=== PATIENT | male | born 1980 | race American Indian/Alaskan Native ===

== ENCOUNTER 2018-04-07 23:12 | Emergency (ER) | payer SELFPAY ==
[2018-04-07 23:50] VITALS: BP 119/82
[2018-04-08] MEDS ORDERED: MOTRIN PO ONE (02:45)
--- NOTE | 2018-04-08 02:59 | Emergency Department Report ---
ED General Adult HPI - General Chief complaint: Pain General Stated complaint: BODY CRAMPS Time Seen by Provider: 04/08/18 02:48 Source: patient Mode of arrival: Ambulatory Limitations: No Limitations - History of Present Illness Initial comments: This is a 37-year-old male nontoxic, well nourished in appearance, no acute signs of distress presents to the ED with c/o of body aches. Patient stated that last night he was walking from [facility] to [place]. Patient denies any other trauma. Patient denies any fever, chills, nausea, vomiting, chest pain, shortness of breath, headache, stiff neck, numbness or tingling. She denies any abdominal pain. Patient denies any allergies. Past medical history includes alcoholism. -: Last night Radiation: non-radiation Severity scale (0 -10): 8 Quality: aching Consistency: constant Improves with: none Worsens with: none Associated Symptoms: denies other symptoms. denies: confusion, chest pain, cough, diaphoresis, fever/chills, headaches, loss of appetite, malaise, nausea/ vomiting, rash, seizure, shortness of breath, syncope, weakness Treatments Prior to Arrival: none - Related Data Previous Rx's Medication Instructions Recorded Last Taken Type chlordiazePOXIDE [Librium] 25 mg PO Q8H PRN #15 capsule 03/10/16 Unknown Rx Cyclobenzaprine [Flexeril] 10 mg PO BID PRN #14 tablet 04/08/18 Unknown Rx Ibuprofen [Motrin] 600 mg PO Q8H PRN #30 tablet 04/08/18 Unknown Rx Allergies Allergy/AdvReac Type Severity Reaction Status Date / Time No Known Allergies Allergy Verified 04/07/18 23:45 ED Review of Systems ROS: Stated complaint: BODY CRAMPS Other details as noted in HPI Constitutional: denies: chills, fever Eyes: denies: eye pain, eye discharge, vision change ENT: denies: ear pain, throat pain Respiratory: denies: cough, shortness of breath, wheezing Cardiovascular: denies: chest pain, palpitations Endocrine: no symptoms reported Gastrointestinal: denies: abdominal pain, nausea, diarrhea Genitourinary: denies: urgency, dysuria Musculoskeletal: denies: back pain, joint swelling, arthralgia Skin: denies: rash, lesions Neurological: denies: headache, weakness, paresthesias Psychiatric: denies: anxiety, depression Hematological/Lymphatic: denies: easy bleeding, easy bruising ED Past Medical Hx - Past Medical History Hx Asthma: Yes Additional medical history: Alcoholism - Surgical History Past Surgical History?: No Additional Surgical History: left hand, hand - Social History Smoking Status: Current Every Day Smoker Substance Use Type: Alcohol, Marijuana - Medications Home Medications: Home Medications Medication Instructions Recorded Confirmed Last Taken Type chlordiazePOXIDE [Librium] 25 mg PO Q8H PRN #15 capsule 03/10/16 05/20/16 Unknown Rx Cyclobenzaprine [Flexeril] 10 mg PO BID PRN #14 tablet 04/08/18 Unknown Rx Ibuprofen [Motrin] 600 mg PO Q8H PRN #30 tablet 04/08/18 Unknown Rx ED Physical Exam - General Limitations: No Limitations General appearance: alert, in no apparent distress - Head Head exam: Present: atraumatic, normocephalic - Eye Eye exam: Present: normal appearance Pupils: Present: normal accommodation - ENT ENT exam: Present: normal exam, mucous membranes moist - Neck Neck exam: Present: normal inspection, full ROM. Absent: tenderness, meningismus, lymphadenopathy - Respiratory Respiratory exam: Present: normal lung sounds bilaterally. Absent: respiratory distress, wheezes, rales, rhonchi, stridor, chest wall tenderness, accessory muscle use, decreased breath sounds, prolonged expiratory - Cardiovascular Cardiovascular Exam: Present: regular rate, normal rhythm, normal heart sounds. Absent: bradycardia, tachycardia, irregular rhythm, systolic murmur, diastolic murmur, rubs, gallop - GI/Abdominal GI/Abdominal exam: Present: soft, normal bowel sounds. Absent: distended, tenderness, guarding, rebound, rigid, diminished bowel sounds - Rectal Rectal exam: Present: deferred - Extremities Exam Extremities exam: Present: normal inspection, full ROM, normal capillary refill. Absent: tenderness - Back Exam Back exam: Present: normal inspection, full ROM. Absent: tenderness, CVA tenderness (R), CVA tenderness (L), muscle spasm, paraspinal tenderness, vertebral tenderness, rash noted - Neurological Exam Neurological exam: Present: alert, oriented X3, normal gait - Psychiatric Psychiatric exam: Present: normal affect, normal mood - Skin Skin exam: Present: warm, dry, intact, normal color. Absent: rash ED Course Vital Signs 04/07/18 23:45 Temperature 98.0 F Pulse Rate 74 Respiratory 18 Rate Blood Pressure 119/82 O2 Sat by Pulse 98 Oximetry - Reevaluation(s) Reevaluation #1: 04/08/18 02:56 Patient is speaking in full sentences with no signs of distress noted. - Consultations Consultation #1: 04/08/18 04:37 Patient has been consulted with Dr. Harper about patient history, physical exam, and labs and examined and stated to give patient fluids and discharge. ED Medical Decision Making - Lab Data Result diagrams: 04/08/18 02:59 04/08/18 02:59 - Medical Decision Making 37-year-old male that presents with generalized muscular strains. Patient is stable and was examined by me. Labs obtained and unremarkable. CK obtained and elevated. As per Dr. Harper, no admission necessary but to provide patient with 1 L of normal saline and then to discharge. Patient received Motrin in the ED. Patient state if symptoms are improving subsiding after pain medication. Patient's vital signs are within normal limits. Patient is discharged with Motrin and Flexeril and was instructed not to operate any machinery while taking Flexeril due to possible drowsiness. Patient was referred to Follow-up with a primary care doctor in 3-5 days or if symptoms worsen and continue return to emergency room as soon as possible. At time of discharge, the patient does not seem toxic or ill in appearance. No acute signs of distress noted. Patient agrees to discharge treatment plan of care. No further questions noted by the patient. Critical care attestation.: If time is entered above; I have spent that time in minutes in the direct care of this critically ill patient, excluding procedure time. ED Disposition Clinical Impression: Generalized body aches, Muscle strain Disposition: [id number] TO HOME OR SELFCARE Is pt being admited?: No Does the pt Need Aspirin: No Condition: Stable Instructions: Cyclobenzaprine (By mouth), Muscle Strain (ED) Additional Instructions: Follow-up with a primary care doctor in 3-5 days or if symptoms worsen and continue return to emergency room as soon as possible. Take ibuprofen and Flexeril as prescribed. Do not operate heavy machinery while taking Flexeril due to sedation Prescriptions: Cyclobenzaprine [Flexeril] 10 mg PO BID PRN #14 tablet PRN Reason: Muscle Spasm Ibuprofen [Motrin] 600 mg PO Q8H PRN #30 tablet PRN Reason: Pain Referrals: PRIMARY CARE, [Primary Care Provider] - 3-5 Days DEEPAK CLAYTON MD [Staff Physician] - 3-5 Days [facility] [place] [Outside] - 3-5 Days [facility] [Outside] - 3-5 Days
[2018-04-08 03:24] LABS: Basophils # (Auto) 0.1 K/mm3 (0.0-0.1); Basophils % (Auto) 0.7 % (0.0-1.8); Eosinophils % (Auto) 0.1 % (0.0-4.3); Hematocrit 40.8 % (35.5-45.6); Hemoglobin 13.8 gm/dl (11.8-15.2); Lymphocytes # (Auto) 1.6 K/mm3 (1.2-5.4); Lymphocytes % (Auto) 19.3 % (13.4-35.0); Mean Corpuscular HGB Conc 34 % (32-34); Mean Corpuscular Hemoglobin 31 pg (28-32); Mean Corpuscular Volume 91 fl (84-94); Monocytes # (Auto) 0.6 K/mm3 (0.0-0.8); Monocytes % (Auto) 7.1 % (0.0-7.3); Platelet Count 205 K/mm3 (140-440); Red Blood Count 4.49 M/mm3 (3.65-5.03); Red Cell Distribution Width 15.7 % (13.2-15.2)
[2018-04-08 04:01] LABS: BUN/Creatinine Ratio 15; Blood Urea Nitrogen 17 mg/dL (9-20); Calcium 9.8 mg/dL (8.4-10.2); Hemolysis Index 2
[2018-04-08] MEDS ORDERED: NACL 0.9% 1000 ML 1,000 ML IV ONE (04:27)
[2018-04-08 05:37] LABS: Bacteria,Urine 1+ /HPF (Negative); Bilirubin,Urine NEG (Negative); Blood,Urine NEG (Negative); Color,Urine Yellow (Yellow); Mucus,Urine FEW /HPF; Urobilinogen,Urine < 2.0 mg/dL (<2.0)
== END 2018-04-08 07:19 | disposition home or self-care (01) ==
LOC: ED 23:12
DX: T14.8XXA Other injury of unspecified body region, initial encounter (principal); M79.1 Myalgia; J45.909 Unspecified asthma, uncomplicated; F17.200 Nicotine dependence, unspecified, uncomplicated; F12.10 Cannabis abuse, uncomplicated; X58.XXXA Exposure to other specified factors, initial encounter; Y93.89 Activity, other specified; Y92.89 Other specified places as the place of occurrence of the external cause; Y99.8 Other external cause status
CPT/HCPCS: 36415; 80048; 81001; 82550; 85025; 99284; J7030

== ENCOUNTER 2018-05-02 00:52 | Emergency (ER) | payer SELFPAY ==
[2018-05-02 02:58] VITALS: BP 111/72
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
[2018-05-02] MEDS ORDERED: BACTRIM DS PO ONE (04:00)
[2018-05-02] MEDS ORDERED: BOOSTRIX IM ONE (04:00)
[2018-05-02] MEDS ORDERED: TYLENOL PO ONE (04:01)
[2018-05-02 04:21] LABS: Basophils % (Auto) 0.4 % (0.0-1.8); Eosinophils % (Auto) 0.4 % (0.0-4.3); Hematocrit 37.7 % (35.5-45.6); Hemoglobin 12.4 gm/dl (11.8-15.2); Lymphocytes # (Auto) 2.7 K/mm3 (1.2-5.4); Lymphocytes % (Auto) 33.5 % (13.4-35.0); Mean Corpuscular HGB Conc 33 % (32-34); Mean Corpuscular Hemoglobin 30 pg (28-32); Mean Corpuscular Volume 91 fl (84-94); Monocytes # (Auto) 0.6 K/mm3 (0.0-0.8); Monocytes % (Auto) 6.8 % (0.0-7.3); Platelet Count 209 K/mm3 (140-440); Red Blood Count 4.15 M/mm3 (3.65-5.03); Red Cell Distribution Width 15.3 % (13.2-15.2)
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
== END 2018-05-02 05:03 | disposition home or self-care (01) ==
LOC: ED 00:52
DX: S61.431A Puncture wound without foreign body of right hand, initial encounter (principal); J45.909 Unspecified asthma, uncomplicated; F17.200 Nicotine dependence, unspecified, uncomplicated; X95.01XA Assault by airgun discharge, initial encounter; Y93.89 Activity, other specified; Y99.8 Other external cause status; Y92.89 Other specified places as the place of occurrence of the external cause
CPT/HCPCS: 36415; 85025; 90471; 90715

== ENCOUNTER 2018-06-07 02:57 | Emergency (ER) | payer SELFPAY ==
[2018-06-07 03:10] VITALS: BP 122/77
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
[2018-06-07] MEDS ORDERED: MOTRIN PO ONE (07:57)
== END 2018-06-07 08:12 | disposition home or self-care (01) ==
LOC: ED 02:57
DX: M79.662 Pain in left lower leg (principal); M79.661 Pain in right lower leg; J45.909 Unspecified asthma, uncomplicated; F17.200 Nicotine dependence, unspecified, uncomplicated; F12.10 Cannabis abuse, uncomplicated
CPT/HCPCS: 99282

== ENCOUNTER 2018-07-20 20:34 | Emergency (ER) | payer SELFPAY ==
[2018-07-20 21:49] VITALS: BP 143/93
[2018-07-21] MEDS ORDERED: NACL 0.9% 1000 ML 1,000 ML IV ONE ×2 (00:12→02:35)
[2018-07-21] MEDS ORDERED: ZOFRAN IV ONE (00:12)
[2018-07-21] MEDS ORDERED: VANCOMYCIN/NS 1 GM/250 ML 1 GM/250 ML BAG IV ONE (00:12)
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
[2018-07-21] MEDS ORDERED: BOOSTRIX IM ONE (00:15)
[2018-07-21 00:37] LABS: Basophils # (Auto) 0.1 K/mm3 (0.0-0.1); Basophils % (Auto) 1.6 % (0.0-1.8); Eosinophils # (Auto) 0.1 K/mm3 (0.0-0.4); Eosinophils % (Auto) 1.6 % (0.0-4.3); Hemoglobin 13.1 gm/dl (11.8-15.2); Lymphocytes # (Auto) 2.3 K/mm3 (1.2-5.4); Lymphocytes % (Auto) 38.4 % (13.4-35.0); Mean Corpuscular HGB Conc 34 % (32-34); Mean Corpuscular Hemoglobin 31 pg (28-32); Mean Corpuscular Volume 92 fl (84-94); Monocytes # (Auto) 0.4 K/mm3 (0.0-0.8); Monocytes % (Auto) 6.4 % (0.0-7.3); Platelet Count 189 K/mm3 (140-440); Red Blood Count 4.24 M/mm3 (3.65-5.03); Red Cell Distribution Width 15.8 % (13.2-15.2)
[2018-07-21 00:47] LABS: INR 0.86 (0.87-1.13)
--- NOTE | 2018-07-21 00:47 | XRay Report ---
FINAL REPORT EXAM: XR CHEST 1V AP HISTORY: SOB TECHNIQUE: A portable view the chest was obtained. FINDINGS: The heart size and vascularity appear normal. The lungs are clear. Pleural fluid is not seen. The skeletal structures appear well maintained. IMPRESSION: No acute cardiopulmonary process.
[2018-07-21 00:48] LABS: Partial Thromboplastin Time 30.3 Sec. (24.2-36.6)
--- NOTE | 2018-07-21 00:49 | XRay Report ---
FINAL REPORT EXAM: XR TIBIA FIBULA 2V RT HISTORY: Trauma TECHNIQUE: Three views of the right tibia-fibula were obtained. FINDINGS: There is no evidence of fracture or soft tissue injury. The ankle is well maintained. The knee joint is suboptimally seen for evaluation. IMPRESSION: No acute injury identified.
[2018-07-21 01:04] LABS: Alanine Aminotransferase 25 units/L (7-56); Albumin 5.2 g/dL (3.9-5); BUN/Creatinine Ratio 14; Blood Urea Nitrogen 14 mg/dL (9-20); Calcium 9.6 mg/dL (8.4-10.2); Hemolysis Index 0
--- NOTE | 2018-07-21 01:17 | Cat Scan Report ---
FINAL REPORT PROCEDURE: CT HEAD/BRAIN WO CON TECHNIQUE: Computerized tomography of the head was performed without contrast material. HISTORY: Trauma COMPARISON: No prior studies are available for comparison. FINDINGS: Skull and scalp: Normal. Paranasal sinuses: Normal. Ventricles and subarachnoid spaces: Normal. Cerebrum: No evidence of hemorrhage, acute infarction or mass . Cerebellum and brainstem: No evidence of hemorrhage, acute infarction or mass. Vasculature: Normal. Comments: None. IMPRESSION: There is no evidence of an acute intracranial process.
[2018-07-21] MEDS ORDERED: D50W (25GM) Syringe IV ONE (02:35)
== END 2018-07-21 03:06 | disposition home or self-care (01) ==
LOC: ED 20:34
DX: L03.115 Cellulitis of right lower limb (principal); J45.909 Unspecified asthma, uncomplicated; F17.200 Nicotine dependence, unspecified, uncomplicated; F12.10 Cannabis abuse, uncomplicated; Z79.899 Other long term (current) drug therapy
CPT/HCPCS: 36415; 70450; 71045; 73590; 80053; 82550; 83690; 84484; 85025; 85610; 85730; 90471; 90715; 93005; 93010; 96365; 96375; 99285; G0480; J2405; J3370; J7030; 80320

== ENCOUNTER 2018-12-10 12:27 | Emergency (ER) | payer OTHER ==
[2018-12-10 12:34] VITALS: BP 126/81
--- NOTE | 2018-12-10 13:18 | Emergency Department Report ---
- General Chief Complaint: Upper Respiratory Infection Stated Complaint: FLU LIKE SYMPTOMS Time Seen by Provider: 12/10/18 12:35 Source: patient Mode of arrival: Ambulatory Limitations: No Limitations - History of Present Illness Initial Comments: Pt is a 39 yo male who presents to the ED with c/o a cough that began yesterday morning. He states he has yellow sputum production. The patient has associated congestion and rhinorrhea. He denies any sore throat, ear ache, SOB, or any other sx. He is a current every day smoker 1 PPD. He denies any PMHx or any allergies to any medications. He states he does get seasonal allergies. - Related Data Previous Rx's Medication Instructions Recorded Last Taken Type chlordiazePOXIDE [Librium] 25 mg PO Q8H PRN #15 capsule 03/10/16 Unknown Rx Cyclobenzaprine [Flexeril 10 MG 10 mg PO BID PRN #14 tablet 04/08/18 Unknown Rx TAB] Ibuprofen [Motrin 600 MG tab] 600 mg PO Q8H PRN #30 tablet 05/02/18 Unknown Rx Acetaminophen 500 mg PO Q12H PRN #10 tablet 06/07/18 Unknown Rx Ibuprofen 600 mg PO TID PRN #20 tablet 07/21/18 Unknown Rx ALBUTEROL Inhaler (OR & NICU) 2 puff IH QID PRN #1 inhalation 12/10/18 Unknown Rx [Proair] Azithromycin [Zithromax Z-JOSE] 250 mg PO DAILY 5 Days #6 tablet 12/10/18 Unknown Rx Benzonatate [Tessalon Perles] 100 mg PO Q8HR PRN #14 capsule 12/10/18 Unknown Rx guaiFENesin [Mucinex] 600 mg PO BID 7 Days #14 tab.er.12h 12/10/18 Unknown Rx Allergies Allergy/AdvReac Type Severity Reaction Status Date / Time No Known Allergies Allergy Verified 12/10/18 12:29 ED Review of Systems ROS: Stated complaint: FLU LIKE SYMPTOMS Other details as noted in HPI Comment: All other systems reviewed and negative ED Past Medical Hx - Past Medical History Previous Medical History?: No Hx Asthma: Yes Additional medical history: Alcoholism - Surgical History Additional Surgical History: left hand, hand - Social History Smoking Status: Current Every Day Smoker Substance Use Type: Alcohol - Medications Home Medications: Home Medications Medication Instructions Recorded Confirmed Last Taken Type chlordiazePOXIDE [Librium] 25 mg PO Q8H PRN #15 capsule 03/10/16 05/20/16 Unknow n Rx Cyclobenzaprine [Flexeril 10 MG 10 mg PO BID PRN #14 tablet 04/08/18 Unknown Rx TAB] Ibuprofen [Motrin 600 MG tab] 600 mg PO Q8H PRN #30 tablet 05/02/18 Unknown Rx Acetaminophen 500 mg PO Q12H PRN #10 tablet 06/07/18 Unknown Rx Ibuprofen 600 mg PO TID PRN #20 tablet 07/21/18 Unknown Rx ALBUTEROL Inhaler (OR & NICU) 2 puff IH QID PRN #1 inhalation 12/10/18 Unknown Rx [Proair] Azithromycin [Zithromax Z-JOSE] 250 mg PO DAILY 5 Days #6 tablet 12/10/18 Unknown Rx Benzonatate [Tessalon Perles] 100 mg PO Q8HR PRN #14 capsule 12/10/18 Unknown Rx guaiFENesin [Mucinex] 600 mg PO BID 7 Days #14 tab.er.12h 12/10/18 Unknown Rx ED Physical Exam - General Limitations: No Limitations General appearance: alert, in no apparent distress - Head Head exam: Present: atraumatic, normocephalic - ENT ENT exam: Present: mucous membranes moist, other (no sinus TTP bilaterally ) - Respiratory Respiratory exam: Present: rhonchi (on the right side, clears upon asking pt to cough ). Absent: respiratory distress, wheezes, rales, stridor, chest wall tenderness, accessory muscle use, decreased breath sounds, prolonged expiratory - Cardiovascular Cardiovascular Exam: Present: regular rate, normal rhythm, normal heart sounds. Absent: systolic murmur, rubs, gallop - Neurological Exam Neurological exam: Present: alert, oriented X3 - Psychiatric Psychiatric exam: Present: normal affect, normal mood ED Course Vital Signs 12/10/18 12:33 Temperature 98.6 F Pulse Rate 68 Respiratory 18 Rate Blood Pressure 126/81 O2 Sat by Pulse 96 Oximetry ED Medical Decision Making - Radiology Data Radiology results: report reviewed PROCEDURE: XR CHEST ROUTINE 2V TECHNIQUE: PA and lateral chest HISTORY: cough, smoker COMPARISONS: Chest x-ray July 21, 2018 FINDINGS: Trachea midline. Heart size normal. No pneumothorax. No sizable effusion. No acute airspace disease. No acute bony abnormality. IMPRESSION: No acute pulmonary disease.. This document is electronically signed by Ari Renae MD., December 10 2018 02:02:21 PM ET Transcribed By: HJ Dictated By: ARI RENAE MD Electronically Authenticated By: ARI RENAE MD Signed Date/Time: 12/10/18 1404 - Medical Decision Making Pt presents with a productive cough for two days. Associated congestion and rhinorrhea. No fever. VSS. CXR no acute process. Will tx for acute bronchitis. Advised to follow up with PCP 2-3 days. Take all medication as prescribed. Return to the ED for any new or worsening symptoms. - Differential Diagnosis URI, Viral syndrome, Acute bronchitis, PNA Critical care attestation.: If time is entered above; I have spent that time in minutes in the direct care of this critically ill patient, excluding procedure time. ED Disposition Clinical Impression: Acute bronchitis Qualifiers: Bronchitis organism: unspecified organism Qualified Code(s): J20.9 - Acute bronchitis, unspecified Disposition: DC-01 TO HOME OR SELFCARE Is pt being admited?: No Does the pt Need Aspirin: No Condition: Stable Instructions: Acute Bronchitis (ED) Additional Instructions: Follow up with primary care doctor in the next 2-3 days. Take all medications as prescribed. Attempt to stop smoking. Return to the emergency room if any new or worsening symptoms. Prescriptions: guaiFENesin [Mucinex] 600 mg PO BID 7 Days #14 tab.er.12h ALBUTEROL Inhaler (OR & NICU) [Proair] 2 puff IH QID PRN #1 inhalation PRN Reason: Shortness Of Breath Benzonatate [Tessalon Perles] 100 mg PO Q8HR PRN #14 capsule PRN Reason: Cough Azithromycin [Zithromax Z-JOSE] 250 mg PO DAILY 5 Days #6 tablet Referrals: [facility] [Provider Group] - 2-3 Days Time of Disposition: 14:14 Print Language: YEMENI
--- NOTE | 2018-12-10 14:04 | XRay Report ---
PROCEDURE: XR CHEST ROUTINE 2V TECHNIQUE: PA and lateral chest HISTORY: cough, smoker COMPARISONS: Chest x-ray July 21, 2018 FINDINGS: Trachea midline. Heart size normal. No pneumothorax. No sizable effusion. No acute airspace disease. No acute bony abnormality. IMPRESSION: No acute pulmonary disease.. This document is electronically signed by Ari Renae MD., December 10 2018 02:02:21 PM ET
== END 2018-12-10 14:22 | disposition home or self-care (01) ==
LOC: ED 12:27
DX: J20.9 Acute bronchitis, unspecified (principal); J45.909 Unspecified asthma, uncomplicated; F17.200 Nicotine dependence, unspecified, uncomplicated
CPT/HCPCS: 71046

== ENCOUNTER 2019-07-08 22:21 | Emergency (ER) | payer SELFPAY ==
[2019-07-08] MEDS ORDERED: TETRACAINE 0.5% OPHTH SOLN 4ML ONE (23:47)
[2019-07-08] MEDS ORDERED: BALANCED SALT IRRIG (BSS) OPHTH SOLN 15 ML ONE (23:47)
[2019-07-08] MEDS ORDERED: FLUORESCEIN 1 MG STRIP OP ONE (23:47)
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
[2019-07-08] MEDS ORDERED: LACTATED RINGERS 1,000 ML IRRIGATION ONE (23:59)
[2019-07-09] MEDS ORDERED: TETRACAINE 0.5% OPHTH SOLN 4ML OU ONE
[2019-07-09 00:44] VITALS: BP 122/77
[2019-07-09] MEDS ORDERED: BALANCED SALT IRRIG (BSS) OPHTH SOLN 15 ML OU ONE (01:43)
== END 2019-07-09 00:57 | disposition home or self-care (01) ==
LOC: ED 22:21
DX: H57.11 Ocular pain, right eye (principal); H57.89 Other specified disorders of eye and adnexa; J45.909 Unspecified asthma, uncomplicated; F17.200 Nicotine dependence, unspecified, uncomplicated; F12.10 Cannabis abuse, uncomplicated; Z79.899 Other long term (current) drug therapy
CPT/HCPCS: 99284; J7120

== ENCOUNTER 2020-10-09 21:39 | Emergency (ER) | payer SELFPAY | END 2020-10-10 00:28 | disposition left against medical advice (07) | LOC: ED 21:39 | DX: M79.673 Pain in unspecified foot (principal); Z53.21 Procedure and treatment not carried out due to patient leaving prior to being seen by health care provider ==

== ENCOUNTER 2021-01-13 21:47 | Emergency (ER) | payer SELFPAY | END 2021-01-14 04:00 | disposition left against medical advice (07) | LOC: ED 21:47 | DX: M79.604 Pain in right leg (principal); Z53.21 Procedure and treatment not carried out due to patient leaving prior to being seen by health care provider ==

== ENCOUNTER 2021-04-10 12:14 | Emergency (ER) | payer SELFPAY ==
[2021-04-10 13:10] VITALS: BP 123/70
--- NOTE | 2021-04-10 13:37 | Emergency Department Report ---
ED Rash HPI - HPI Chief Complaint: Skin Rash Stated Complaint: RASH GROIN AREA Time Seen by Provider: 04/10/21 13:27 Duration: 1 Day Location: Other (bilateral groin ) Suspected Cause: Unknown Rash Symptoms: Yes Itching, No Facial Swelling, No Tongue/Oral Swelling, No Breathing Difficulties, No Choking Sensation, No Wheezing/Dyspnea, No Peeling, No Blistering, No Fever, No Lightheaded, No Malaise, No Myalgias Severity: mild Other History: 40-year-old male presents to the ER today with complaints of rash to his bilateral groin area. Patient states that he noticed it today was he was on his way to work. He states there is a pruritic rash. He denies any new soaps, lotions, creams or any new medication or any new contacts prior to the onset of rash. He states that he does a lot of walking and sweating in the groin area. He denies any shortness of breath, wheezing, facial swelling or extremity swelling or any other symptoms at this time. ED Review of Systems ROS: Stated complaint: RASH GROIN AREA Other details as noted in HPI Comment: All other systems reviewed and negative Constitutional: denies: chills, fever Eyes: denies: eye pain, eye discharge, vision change ENT: denies: ear pain, throat pain, dental pain, hearing loss, epistaxis, congestion Respiratory: denies: cough, shortness of breath, SOB with exertion, SOB at rest, wheezing Cardiovascular: denies: chest pain, palpitations Gastrointestinal: denies: abdominal pain, nausea, vomiting, diarrhea, constipation, hematemesis, hematochezia Genitourinary: denies: urgency, dysuria, frequency, hematuria, discharge, testicular pain, testicular mass Musculoskeletal: denies: back pain, joint swelling, arthralgia, myalgia Skin: rash. denies: change in color, change in hair/nails, pruritus Neurological: denies: headache, weakness, paresthesias Psychiatric: denies: anxiety, depression, auditory hallucinations, visual hallucinations, homicidal thoughts, suicidal thoughts Hematological/Lymphatic: denies: easy bleeding, easy bruising ED Past Medical Hx - Past Medical History Previous Medical History?: Yes Hx Asthma: Yes Additional medical history: Alcoholism - Surgical History Past Surgical History?: Yes Additional Surgical History: left hand, hand - Social History Smoking Status: Current Every Day Smoker - Medications Home Medications: Home Medications Medication Instructions Recorded Confirmed Last Taken Type chlordiazePOXIDE [Librium] 25 mg PO Q8H PRN #15 capsule 03/10/16 05/20/16 Unknown Rx Cyclobenzaprine [Flexeril 10 MG 10 mg PO BID PRN #14 tablet 04/08/18 Unknown Rx TAB] Ibuprofen [Motrin 600 MG tab] 600 mg PO Q8H PRN #30 tablet 05/02/18 Unknown Rx Acetaminophen 500 mg PO Q12H PRN #10 tablet 06/07/18 Unknown Rx Ibuprofen 600 mg PO TID PRN #20 tablet 07/21/18 Unknown Rx Albuterol Mdi (or & Nicu Only) 2 puff IH QID PRN #1 inhalation 12/10/18 Unknown Rx [Proair] Azithromycin [Zithromax Z-JOSE] 250 mg PO DAILY 5 Days #6 tablet 12/10/18 Unknown Rx Benzonatate [Tessalon Perles] 100 mg PO Q8HR PRN #14 capsule 12/10/18 Unknown Rx guaiFENesin [Mucinex] 600 mg PO BID 7 Days #14 tab.er.12h 12/10/18 Unknown Rx Ketorolac Tromethamin 0.4%(Nf) 1 drop OD QID PRN #5 ml 07/09/19 Unknown Rx [Acular Ls 0.4% Ophth Berenice] Rash Exam - Exam General: Vital signs noted. No distress. Alert and acting appropriately. HEENT: No Periorbital Edema, No Conjuctival Injection, No Chemosis, No Perioral Edema, No Tongue Edema, No Uvular Edema, No Compromised Airway, No Drooling Lungs: Yes Good Air Exchange, No Wheezes, No Ronchi, No Stridor, No Cough, No Labored Respirations, No Retractions, No Use of Accessory Muscles, No Other Abnormal Lung Sounds Heart: Yes Regular, Yes Murmur Skin: Yes Maculopapular Rash (Hyperpigmented, maculopapular, dry rash with well- demarcated borders noted to the bilateral groin area with few excoriated areas in there. No apparent secondary bacterial infection. Does not appear to involve the scrotum or the penis at this time.), Yes Excoriations Other: Positive: Abdomen Normal, Neurologic Normal, Musculoskeletal Normal ED Course Vital Signs 04/10/21 13:05 Temperature 97.9 F Pulse Rate 46 L Respiratory 20 Rate Blood Pressure 123/70 O2 Sat by Pulse 100 Oximetry ED Medical Decision Making - Medical Decision Making patient rash concerning for tinea cruris. Patient was given paper d.c instructions and paper rx for clotrimazole due to down time. Pt was stable at time of d/c Critical care attestation.: If time is entered above; I have spent that time in minutes in the direct care of this critically ill patient, excluding procedure time. ED Disposition Clinical Impression: Tinea cruris Disposition: DC-01 TO HOME OR SELFCARE Is pt being admited?: No Does the pt Need Aspirin: No Condition: Stable Instructions: [place] [facility], [id number] Referrals: PRIMARY CARE, [Primary Care Provider] - 3-5 Days Forms: Work/School Release Form(ED)
== END 2021-04-10 15:00 | disposition home or self-care (01) ==
LOC: ED 12:14
DX: B35.6 Tinea cruris (principal); J45.909 Unspecified asthma, uncomplicated; F17.200 Nicotine dependence, unspecified, uncomplicated; Z79.899 Other long term (current) drug therapy; Z98.890 Other specified postprocedural states
CPT/HCPCS: 99283